=== PATIENT | female | born 1990 | race Caucasian/White ===

== ENCOUNTER 2021-01-31 07:06 | Emergency (ER) | payer BC, OTHER ==
[~2021-01-31] VITALS: Ht 165.1 cm; Wt 127.0 kg
[2021-01-31 09:08] VITALS: BP 120/79
== END 2021-01-31 09:10 | disposition home or self-care (01) ==
LOC: ER 07:06
DX: G43.909 Migraine, unspecified, not intractable, without status migrainosus (principal)